=== PATIENT | male | born 1995 | race Caucasian/White ===

== ENCOUNTER 2018-08-17 19:16 | Observation (INO) | payer BC ==
[2018-08-17] MEDS ORDERED: NS 1,000 ML IV ONE ×2 (19:28→21:20)
--- NOTE | 2018-08-17 19:28 | EDPHY ---
H & P Stated Complaint: Chest pain after hiking, new to elevation, "heart murmur" Time Seen by Provider: 08/17/18 19:22 HPI/ROS: HPI: This is a 22-year-old male who presents with Chief Complaint: Chest pain after hiking, new to elevation, "heart murmur" Location: Chest Quality: Pain, dyspnea Duration: 3-4 hours prior to arrival Signs and Symptoms: no shortness of breath at rest, + shortness of breath on exertion, no cough, no chest pain, no palpitations, no lower extremity edema, no wheezing, no orthopnea, no paroxysmal nocturnal dyspnea, no fever, no injury/ trauma, no hemoptysis, no carpal pedal spasms, no fever Timing: Slowly improving Severity: Moderate Context: Patient presents with complaints of anterior generalized chest pain associated with shortness of breath and "racing heart" while hiking in the [facility] approximately 3 hr prior to arrival. He reports that he was hiking approximately 3.5 hr when he started to experience the symptoms. He only drank 1 bottle of water the entire day. He has a history of depression, anxiety and takes Paxil and clonazepam 0.5 mg twice a day. Patient drove yesterday from [facility] to [facility] in the car for approximately 8 hr. He is returning home tomorrow in the car. Nonsmoker. Denies drug use. No recent alcohol use. Patient reports that he lives a sedentary lifestyle and is not used to moderate strenuous exercise. He reports that his symptoms are slowly improving since arrival to the emergency room. NO recent illnesses. No Family cardiac history. Modifying Factors: None Comment: ROS: A comprehensive 10 system review of systems is otherwise negative aside from elements mentioned in the history of present illness. MEDICAL/SURGICAL/SOCIAL HISTORY: Medical history: Depression, anxiety. Surgical history: Denies Social history: Lives in [place]. Denies alcohol, tobacco, drug use. CONSTITUTIONAL: Moderately anxious young adult white male, awake and alert, no obvious distress HEENT: Atraumatic and normocephalic, PERRL, EOMI. Nares patent; no rhinorrhea; no nasal mucosal edema. Tympanic membranes clear. Oropharynx clear, no exudate and moist pink mucosa. Airway patent. No lymphadenopathy. No meningismus. Cardiovascular: Normal S1/S2, sinus tachycardia, regular rhythm, without murmur rub or gallop. PULMONARY/CHEST: Symmetrical and nontender. Clear to auscultation bilaterally. Good air movement. No accessory muscle usage. ABDOMEN: Soft, nondistended, nontender, no rebound, no guarding, no peritoneal signs, no masses or organomegaly. No CVAT. EXTREMITIES: 2/2 pulses, strength 5/5, no deformities, no clubbing, no cyanosis or edema. NEUROLOGICAL: no focal neuro deficits. GCS 15. Speaking in complete sentences. SKIN: Warm and dry, no erythema. no rash. Good capillary refill. Source: Patient Exam Limitations: No limitations - Personal History Current Tetanus Diphtheria and Acellular Pertussis (TDAP): Unsure - Medical/Surgical History Hx Asthma: No Hx Chronic Respiratory Disease: No Hx Diabetes: No Hx Cardiac Disease: No Hx Renal Disease: No Hx Cirrhosis: No Hx Alcoholism: No Hx HIV/AIDS: No Hx Splenectomy or Spleen Trauma: No Other PMH: Depression - Social History Smoking Status: Never smoked Constitutional: Initial Vital Signs Temperature (C) 36.8 C 08/17/18 19:19 Heart Rate 122 H 08/17/18 19:19 Respiratory Rate 17 08/17/18 19:19 Blood Pressure 138/91 H 08/17/18 19:19 O2 Sat (%) 99 08/17/18 19:19 O2 Delivery Mode Room Air O2 (L/minute) 2 Allergies/Adverse Reactions: No Known Allergies Allergy (Unverified 08/17/18 19:18) Home Medications: Medication Instructions Recorded CLONAZEPAM 08/17/18 Remeron 08/17/18 Medical Decision Making ED Course/Re-evaluation: Vital signs reviewed and show tachycardia. Placed on general office clerk. Due to component of altitude sickness, placed on oxygen 2 L nasal cannula EKG my read shows sinus tachycardia with a rate of 119 beats per minute with PAC but no acute ischemic changes, no arrhythmias, no heart blocks. IV access and laboratory studies ordered Given 2 L normal saline 1957: Notified by tech that POC troponin 0.06. 0: Serum troponin 0.074, D-dimer unremarkable, leukocytosis noted, no anemia , no platelet dysfunction, no electrolyte imbalances, no acute kidney injury 2199: Reassessed patient who reports no chest pain. Time for clonazepam dosing. clonazepam 0.5 mg given 2310: Repeat EKG stable. No acute ischemic changes, no arrhythmias, no RV strain. 2337: Repeat troponin 0.062 Chest x-ray ordered my read via PAC shows no opacity, no pneumothorax, no effusion, no widened mediastinum. ED decision to consult for admission for elevated troponin and leukocytosis with concern for myocarditis versus pericarditis. This all could be related to cardiac strain from exertion during hiking at increased elevation. Patient would benefit from echocardiogram and serial cardiac enzymes. Heart rate is now 96 beats per minute This patient was seen under the supervision of my secondary supervising physician. I evaluated care for this patient with attending. Differential Diagnosis: Chest pain including but not limited to myocardial ischemia, pulmonary embolus, chest wall pain, pleural inflammation and pulmonary infectious causes. - Data Points Laboratory Results: Laboratory Results 08/17/18 19:35 08/17/18 19:35 08/17/18 08/17/18 08/17/18 23:56 22:45 19:46 WBC RBC Hgb Hct MCV MCH MCHC RDW Plt Count MPV Neut % (Auto) Lymph % (Auto) [place] % (Auto) Eos % (Auto) Baso % (Auto) Nucleat RBC Rel Count Absolute Neuts (auto) Absolute Lymphs (auto) Absolute Monos (auto) Absolute Eos (auto) Absolute Basos (auto) Absolute Nucleated RBC Immature Gran % Seg Neutrophils % Band Neutrophils % Lymphocytes % Monocytes % Eosinophils % Basophils % Metamyelocytes % Myelocytes % Promyelocytes % Blast Cells % Immature Gran # Absolute Seg Neuts Absolute Band Neuts Absolute Lymphocytes Absolute Monocytes Absolute Eosinophils Absolute Basophils Absolute Metamyelocyte Absolute Myelocytes Absolute Promyelocytes Absolute Plasma Cells Nucleated RBCs RBC/WBC/PLT Morphology Absolute Blast Cells Plasma Cells % Platelet Estimate D-Dimer < 0.27 ug/mLFEU ug/mLFEU (0.00-0.50) Sodium Potassium Chloride Carbon Dioxide Anion Gap BUN Creatinine Estimated GFR Glucose Calcium POC Troponin I 0.06 ng/mL ng/mL (0.00-0.08) Troponin I 0.062 ng/mL H ng/mL (0.000-0.034) 08/17/18 08/17/18 08/17/18 19:35 19:35 19:35 WBC RBC Hgb Hct MCV MCH MCHC RDW Plt Count MPV Neut % (Auto) Lymph % (Auto) [place] % (Auto) Eos % (Auto) Baso % (Auto) Nucleat RBC Rel Count Absolute Neuts (auto) Absolute Lymphs (auto) Absolute Monos (auto) Absolute Eos (auto) Absolute Basos (auto) Absolute Nucleated RBC Immature Gran % Seg Neutrophils % Band Neutrophils % Lymphocytes % Monocytes % Eosinophils % Basophils % Metamyelocytes % Myelocytes % Promyelocytes % Blast Cells % Immature Gran # Absolute Seg Neuts Absolute Band Neuts Absolute Lymphocytes Absolute Monocytes Absolute Eosinophils Absolute Basophils Absolute Metamyelocyte Absolute Myelocytes Absolute Promyelocytes Absolute Plasma Cells Nucleated RBCs RBC/WBC/PLT Morphology Absolute Blast Cells Plasma Cells % Platelet Estimate D-Dimer < 0.27 ug/mLFEU ug/mLFEU (0.00-0.50) Sodium 137 mEq/L mEq/L (135-145) Potassium 3.7 mEq/L mEq/L (3.5-5.2) Chloride 101 mEq/L mEq/L (97-110) Carbon Dioxide 25 mEq/l mEq/l (22-31) Anion Gap 11 mEq/L mEq/L (6-14) BUN 12 mg/dL mg/dL (7-23) Creatinine 0.8 mg/dL mg/dL (0.7-1.3) Estimated GFR > 60 Glucose 92 mg/dL mg/dL (70-100) Calcium 9.5 mg/dL mg/dL (8.5-10.4) POC Troponin I Troponin I 0.074 ng/mL H ng/mL (0.000-0.034) 08/17/18 19:35 WBC 17.77 10^3/uL H 10^3/uL (3.80-9.50) RBC 6.04 10^6/uL 10^6/uL (4.40-6.38) Hgb 16.0 g/dL g/dL (13.7-17.5) Hct 48.1 % % (40.0-51.0) MCV 79.6 fL L fL (81.5-99.8) MCH 26.5 pg L pg (27.9-34.1) MCHC 33.3 g/dL g/dL (32.4-36.7) RDW 13.8 % % (11.5-15.2) Plt Count 324 10^3/uL 10^3/uL (150-400) MPV 10.2 fL fL (8.7-11.7) Neut % (Auto) Not Reported Lymph % (Auto) Not Reported [place] % (Auto) Not Reported Eos % (Auto) Not Reported Baso % (Auto) Not Reported Nucleat RBC Rel Count Not Reported Absolute Neuts (auto) Not Reported Absolute Lymphs (auto) Not Reported Absolute Monos (auto) Not Reported Absolute Eos (auto) Not Reported Absolute Basos (auto) Not Reported Absolute Nucleated RBC Not Reported Immature Gran % Not Reported Seg Neutrophils % 80.0 % % Band Neutrophils % 0.0 % % Lymphocytes % 14.0 % % Monocytes % 5.0 % % Eosinophils % 1.0 % % Basophils % 0.0 % % Metamyelocytes % 0.0 % % Myelocytes % 0.0 % % Promyelocytes % 0.0 % % Blast Cells % 0.0 % % Immature Gran # Not Reported Absolute Seg Neuts 14.22 10^3/uL H 10^3/uL (1.70-6.50) Absolute Band Neuts 0.00 10^3/uL 10^3/uL (0.00-0.70) Absolute Lymphocytes 2.49 10^3/uL 10^3/uL (1.00-3.00) Absolute Monocytes 0.89 10^3/uL H 10^3/uL (0.30-0.80) Absolute Eosinophils 0.18 10^3/uL 10^3/uL (0.03-0.40) Absolute Basophils 0.00 10^3/uL L 10^3/uL (0.02-0.10) Absolute Metamyelocyte 0.00 10^3/mL 10^3/mL (0.00-0.00) Absolute Myelocytes 0.00 10^3/mL 10^3/mL (0.00-0.00) Absolute Promyelocytes 0.00 10^3/uL 10^3/uL (0.00-0.00) Absolute Plasma Cells 0.00 10^3/uL 10^3/uL (0.00-0.00) Nucleated RBCs 0 /100 WBC /100 WBC (0-0) RBC/WBC/PLT Morphology NORMAL (NORMAL) Absolute Blast Cells 0.00 10^3/uL 10^3/uL (0.00-0.00) Plasma Cells % 0.0 % % Platelet Estimate ADEQUATE (ADEQ) D-Dimer Sodium Potassium Chloride Carbon Dioxide Anion Gap BUN Creatinine Estimated GFR Glucose Calcium POC Troponin I Troponin I Medications Given: Discontinued Medications Clonazepam (Klonopin) 0.5 mg PO EDNOW ONE Stop: 08/17/18 22:04 Last Admin: 08/17/18 22:39 Dose: 0.5 mg Sodium Chloride (Ns) 1,000 mls @ 0 mls/hr IV EDNOW ONE; Wide Open PRN Reason: Protocol Stop: 08/17/18 19:29 Last Admin: 08/17/18 19:38 Dose: 1,000 mls Sodium Chloride (Ns) 1,000 mls @ 0 mls/hr IV ONCE ONE; Wide Open PRN Reason: Protocol Stop: 08/17/18 21:21 Last Admin: 08/17/18 22:00 Dose: 1,000 mls Point of Care Test Results: Chemistry 08/17/18 19:46 POC Troponin I 0.06 ng/mL ng/mL (0.00-0.08) Departure - Departure Disposition: [facility] In[facility] Acute Clinical Impression: Elevated troponin, Chest pain on exertion Condition: Fair
[2018-08-17 19:53] LABS: PLATELET COUNT 324 10^3/uL (150-400)
--- NOTE | 2018-08-17 21:04 | CPEKG ---
Test Reason : OPEN Blood Pressure : / mmHG Vent. Rate : 119 BPM Atrial Rate : 120 BPM P-R Int : 155 ms QRS Dur : 102 ms QT Int : 327 ms P-R-T Axes : 052 065 025 degrees QTc Int : 461 ms Sinus tachycardia Atrial premature complex Confirmed by Armando Wilson ([id number]) on 08/17/2018 9:04:23 PM Referred By: Armando Wilson Confirmed By:Armando Wilson
[2018-08-17] MEDS ORDERED: clonazePAM 0.5 MG TAB PO ONE (22:03)
[2018-08-18] MEDS ORDERED: ACETAMINOPHEN 325 MG TAB PO PRN (00:01)
[2018-08-18] MEDS ORDERED: ONDANSETRON 4 MG/2 ML VIAL IVP PRN (00:01)
[2018-08-18] MEDS ORDERED: ONDANSETRON DISINTEGRATING 4 MG TAB PO PRN (00:01)
--- NOTE | 2018-08-18 00:46 | PDGENHP ---
History and Physical - Chief Complaint Chest pain - History of Present Illness 22 yo M w/ hx of anxiety and depression presents with chest pain. The patient is visiting from [place], [place]. He was hiking in [facility] today when he developed central chest pain. The chest pain lasted several hours so he came in to the ED for evaluation. He also noticed a mild cough during this period. In the ED his evaluation was notable for a troponin in the indeterminate range. He is chest pain free at the time of my evaluation. He denies personal cardiac history. He also denies family hx of early CAD or sudden cardiac . His grandfather did have CAD and his mother hypertension. He is being admitted for observation and echocardiogram. Case discussed with ED TRISTON Krishnan; records reviewed and summarized above. History Information - Allergies/Home Medication List Allergies/Adverse Reactions: No Known Allergies Allergy (Unverified 08/17/18 19:18) Home Medications: CLONAZEPAM 08/17/18 [Last Taken Unknown] Remeron 08/17/18 [Last Taken Unknown] I have personally reviewed and updated: family history, medical history - Past Medical History Additional medical history: Anxiety. Depression - Surgical History Additional surgical history: Eye surgery at age 3 - Family History Positive for: CAD, hypertension - Social History Smoking Status: Never smoked Review of Systems Review of Systems: ROS: 10pt was reviewed & negative except for what was stated in HPI & below Physical Exam Physical Exam: Temp Pulse Resp BP Pulse Ox 36.8 C 99 18 117/75 94 08/17/18 19:19 08/18/18 00:00 08/18/18 00:00 08/18/18 00:00 08/18/18 00:00 Constitutional: no apparent distress, not in pain Eyes: PERRL, EOMI Ears, Nose, Mouth, Throat: moist mucous membranes, no oral mucosal ulcers Cardiovascular: regular rate and rhythym, no murmur, rub, or gallop Respiratory: no respiratory distress, clear to auscultation Gastrointestinal: normoactive bowel sounds, soft, non-tender abdomen Skin: warm, normal color Musculoskeletal: full muscle strength, no muscle tenderness Neurologic: AAOx3, CN II-XII Intact Psychiatric: interacting appropriately, not anxious Lab Data & Imaging Review 08/17/18 19:35 08/17/18 19:35 WBC 17.77 10^3/uL (3.80-9.50) H 08/17/18 19:35 RBC 6.04 10^6/uL (4.40-6.38) 08/17/18 19:35 Hgb 16.0 g/dL (13.7-17.5) 08/17/18 19:35 Hct 48.1 % (40.0-51.0) 08/17/18 19:35 MCV 79.6 fL (81.5-99.8) L 08/17/18 19: MCH 26.5 pg (27.9-34.1) L 08/17/18 19: MCHC 33.3 g/dL (32.4-36.7) 08/17/18 19:35 RDW 13.8 % (11.5-15.2) 08/17/18 19:35 Plt Count 324 10^3/uL (150-400) 08/17/18 19:35 MPV 10.2 fL (8.7-11.7) 08/17/18 19:35 Neut % (Auto) Not Reported 08/17/18 19:35 Lymph % (Auto) Not Reported 08/17/18 19:35 [place]rell % (Auto) Not Reported 08/17/18 19:35 Eos % (Auto) Not Reported 08/17/18 19:35 Baso % (Auto) Not Reported 08/17/18 19:35 Nucleat RBC Rel Count Not Reported 08/17/18 19:35 Absolute Neuts (auto) Not Reported 08/17/18 19:35 Absolute Lymphs (auto) Not Reported 08/17/18 19:35 Absolute Monos (auto) Not Reported 08/17/18 19:35 Absolute Eos (auto) Not Reported 08/17/18 19:35 Absolute Basos (auto) Not Reported 08/17/18 19:35 Absolute Nucleated RBC Not Reported 08/17/18 19:35 Immature Gran % Not Reported 08/17/18 19:35 Seg Neutrophils % 80.0 % 08/17/18 19:35 Band Neutrophils % 0.0 % 08/17/18 19:35 Lymphocytes % 14.0 % 08/17/18 19:35 Monocytes % 5.0 % 08/17/18 19:35 Eosinophils % 1.0 % 08/17/18 19:35 Basophils % 0.0 % 08/17/18 19:35 Metamyelocytes % 0.0 % 08/17/18 19:35 Myelocytes % 0.0 % 08/17/18 19: Promyelocytes % 0.0 % 08/17/18 19: Blast Cells % 0.0 % 08/17/18 19: Immature Gran # Not Reported 08/17/18 19:35 Absolute Seg Neuts 14.22 10^3/uL (1.70-6.50) H 08/17/18 19: Absolute Band Neuts 0.00 10^3/uL (0.00-0.70) 08/17/18 19:35 Absolute Lymphocytes 2.49 10^3/uL (1.00-3.00) 08/17/18: Absolute Monocytes 0.89 10^3/uL (0.30-0.80) H 08/17/18: Absolute Eosinophils 0.18 10^3/uL (0.03-0.40) 08/17/18: Absolute Basophils 0.00 10^3/uL (0.02-0.10) L 08/17/18: Absolute Metamyelocyte 0.00 10^3/mL (0.00-0.00) 08/17/18: Absolute Myelocytes 0.00 10^3/mL (0.00-0.00) 08/17/18 19: Absolute Promyelocytes 0.00 10^3/uL (0.00-0.00) 08/17/18: Absolute Plasma Cells 0.00 10^3/uL (0.00-0.00) 08/17/18: Nucleated RBCs 0 /100 WBC (0-0) 08/17/18 19:35 RBC/WBC/PLT Morphology NORMAL (NORMAL) 08/17/18: Absolute Blast Cells 0.00 10^3/uL (0.00-0.00) 08/17/18: Plasma Cells % 0.0 % 08/17/18 19: Platelet Estimate ADEQUATE (ADEQ) 08/17/18 19:35 D-Dimer < 0.27 ug/mLFEU (0.00-0.50) 08/17/18 23:56 Sodium 137 mEq/L (135-145) 08/17/18 19:35 Potassium 3.7 mEq/L (3.5-5.2) 08/17/18 19:35 Chloride 101 mEq/L (97-110) 08/17/18 19:35 Carbon Dioxide 25 mEq/l (22-31) 08/17/18 19:35 Anion Gap 11 mEq/L (6-14) 08/17/18 19:35 BUN 12 mg/dL (7-23) 08/17/18 19:35 Creatinine 0.8 mg/dL (0.7-1.3) 08/17/18 19:35 Estimated GFR > 60 08/17/18 19:35 Glucose 92 mg/dL (70-100) 08/17/18 19:35 Calcium 9.5 mg/dL (8.5-10.4) 08/17/18 19:35 POC Troponin I 0.06 ng/mL (0.00-0.08) 08/17/18 19:46 Troponin I 0.062 ng/mL (0.000-0.034) H 08/17/18 22:45 Visualized and Interpreted EKG results: Yes EKG Interpretation: Positive for: normal sinsus rhythm Assessment & Plan Assessment: 22 yo M w/ anxiety and depression presents with chest pain. Plan: 1. Chest pain - Occurred today while hiking at altitude; troponin indeterminate in the ED and downtrending. He is now chest pain free. ECG (personally reviewed/ interpreted) without signs of ischemia. He denies family hx of early CAD or SCD. - Admit to PCU for observation - Monitor on telemetry - Will order TTE 2. Anxiety, depression - Continue home medications pending reconciliation Diet - Regular Code - Full Ppx - Low risk Dispo - Admit under observation status
[2018-08-18 04:42] LABS: PLATELET COUNT 265 10^3/uL (150-400)
[2018-08-18] MEDS: clonazePAM 0.5 MG TAB PO SCH ×2 (10:05→20:49)
[2018-08-18] MEDS: PARoxetine HCL 20 MG TAB PO SCH (10:05)
--- NOTE | 2018-08-18 10:40 | ECHO ---
[email or web address] [address] [address] Main: [phone] Echocardiography Examination Transthoracic Name: MATTY MCCOY MR#: [id number] Study Date: 08/18/2018 Study Time: 09:04 AM Date of : 1995 Age: 22 year(s) Height: 188 cm (74 in.) Weight: 81.65 kg (180 lb.) BSA: 2.08 m2 Gender: Male Examination: Echo Contrast: Image Quality: Adequate Rhythm: Heart Rate: BP: 106 mmHg/65 mmHg Indication: Chest Pain, Indeterminate troponin Procedure Staff Referring Physician: Airline Reservationist: Anyi Allen [facility] Reading Physician: Ed Edwards MD Requesting Provider: Indication: Chest Pain, Indeterminate troponin Measurements Chambers AV/MV Label Value Normal Value Label Value Normal Value IVSd, 2D 0.9 cm (0.6cm - 1.1cm) AV PGmax 6 mmHg LVDd, 2D 4.2 cm (4.2cm - 5.9cm) AV PGmean 3 mmHg LVDs, 2D 2.9 cm (2.1cm - 4cm) AV Vmax 1.19 m/s LVEF, 2D 58 % (54% - 74%) CECILIO D (continuity eq. 2.8 cm2 LVEF, BP 58 % (55% - 70%) VTI) LVOT PGmean 2 mmHg MV A Vmax 0.66 m/s LVOT Vmean 0.65 m/s MV DT 187 ms LVOTd 2.2 cm (1.9cm - 2.1cm) MV E' lateral 0.15 m/s LVPWd, 2D 1 cm (0.6cm - 1cm) MV E' mean 0.14 m/s RVDd, 2D 2.9 cm (1.9cm - 3.8cm) MV E' septal 0.13 m/s LA Volume, BP 42 ml (18ml - 58ml) MV E Vmax 0.89 m/s LADs, 2D 2.9 cm (3cm - 4cm) MV E/A 1.35 LAESV index, BP 20.2 ml/m2 MV E/E' lateral 6.1 RA Area 13.3 cm2 MV E/E' mean 6.36 Additional Vessels MV E/E' septal 6.8 (0.6 - 2.6) Label Value Normal Value MV PHT 0.05 s AoAsc 2.5 cm MV PHT 53 ms AoRoot, 2D 3.4 cm (1.4cm - 2.6cm) MVA PHT 4.2 cm2 IVC 1.3 cm (1.2cm - 2.3cm) TV/PV Label Value Normal Value Patient: MATTY MCCOY Study Date: 08/18/2018 Page 1 of 3 09:04 AM RA Pressure 5 mmHg RVSP 26 mmHg TR Pmax 21 mmHg TR Vmax 2.31 m/s PV PGmax 3 mmHg PV Vmax, Caliper 0.86 m/s (0.6m/s - 0.9m/s) Conclusions Left Ventricle: CONCLUSIONS:1)Normal LV size and systolic function with a LVEF of 58% and normal wall motions.2)Normal diastolic function noted.3)Trivial, physiological MR without MV prolapse.4)Mild TR with estimated normal PA pressures.5)No pericardial effusion noted. Findings Left Ventricle: Left ventricle is normal in size. CONCLUSIONS: 1)Normal LV size and systolic function with a LVEF of 58% and normal wall motions. 2)Normal diastolic function noted. 3)Trivial, physiological MR without MV prolapse. 4)Mild TR with estimated normal PA pressures. 5)No pericardial effusion noted. The ejection fraction, measured by Simpsons method, is 58 %. Left ventricle wall thickness is normal. There are no regional wall motion abnormalities. No LV hypertrophy. Right Ventricle: Normal size right ventricle. Right ventricular systolic function is normal. Left Atrium: The left atrium is normal in size. Mitral Valve: Mitral valve appears structurally normal. Trivial mitral regurgitation. No mitral valve stenosis. Aortic Valve: Aortic leaflets are structurally normal. No significant aortic valve regurgitation. There is no aortic stenosis. Tricuspid Valve: Tricuspid valve leaflets are structurally normal. Mild tricuspid regurgitation. No tricuspid valve stenosis. Right Ventricular systolic pressure is measured at 26 mmHg. Pulmonary artery pressure normal. Pulmonic Valve: Pulmonic leaflets are structurally normal. Trivial pulmonic valve regurgitation is present. Aorta: The aortic root size in 2D measures 3.4 cm. The ascending aorta measures 2.5 cm. Aorta Measurements AoRoot, 2D is 3.4 cm. IVC: The inferior vena cava is normal in size. Pericardium: No pericardial effusion. Exam Details Procedure Ordered: Echo Procedure Status: Routine study Image Quality: Adequate Facility Location: Cardiac Echo 1 Patient: MATTY MCCOY Study Date: 08/18/2018 Page 2 of 3 09:04 AM (No Signature Object) Patient: MATTY MCCOY Study Date: 08/18/2018 Page 3 of 3 09:04 AM [id number]
--- NOTE | 2018-08-18 12:37 | HOSPPROG ---
Hospitalist Progress Note Assessment/Plan: Patient is new to my care. Tells me he had treadmill stress 2 yrs ago inconclusive and did not follow up. No CP now. Gets very fatigued with stairs and walking up hills #Atypical chest pain -no WMA on echo, negative dimer. Sxs not c/w pericarditis -discussed with Dr. Rios. Mildly elevated trops concerning. Check cardiac CT in morning. Add BB this evening for test -check utox #Anxiety: home meds #Leukocytosis: min nonproductive cough yesterday, no infectious sxs, normal CXR -may be hemoconcentrated. Improved with IVFs #Diet: regular Disp: inpatient admission for rate-control, cardiac CT in AM (13:00-13:30) Direct clinical care spent: 30 min. Bedside evaluating pt, reviewing echo, and d /w Dr. Rios Subjective: no chest pain. Denies URI sxs Objective: Vital Signs Temp Pulse Resp BP Pulse Ox 36.8 C 100 13 100/68 96 08/18/18 07:20 08/18/18 11:25 08/18/18 11:25 08/18/18 11:25 08/18/18 11:25 Laboratory Results 08/18/18 03:38 08/18/18 03:38 - Time Spent With Patient Time Spent with Patient: greater than 35 minutes Time Spent with Patient: Greater than 35 minutes spent on this patients care, greater than 50% of time spent counseling, educating, and coordinating care regarding the above mentioned plan. - Physical Exam Constitutional: no apparent distress Eyes: PERRL Ears, Nose, Mouth, Throat: moist mucous membranes Cardiovascular: regular rate and rhythym, other (no reproducbile chest pain) Respiratory: no respiratory distress Gastrointestinal: normoactive bowel sounds Genitourinary: no bladder fullness Skin: warm Musculoskeletal: full muscle strength Neurologic: AAOx3 Psychiatric: interacting appropriately ICD10 Worksheet Patient Problems: Problems Problem Status Onset Chest pain on exertion Acute Elevated troponin Acute
[2018-08-18] MEDS ORDERED: NS 1,000 ML IV SCH (13:00)
--- NOTE | 2018-08-18 15:54 | ASMTCMCOM ---
CM Note CM Note Notes: Pt discussed in rounds and chart reviewed for discharge. Pt is a 22yr old adm with an elevated Troponin and chest pain. Pt has a hx of anxiety & depression, he is visiting from [place] and was hiking when he develop CP. Pt will return home, no needs ID. CM available for needs. PLAN: Home to [facility], independently. Date Signed: 08/18/2018 03:53 PM Electronically Signed By:Kasandra Schroeder
[2018-08-18] MEDS: METOPROLOL TARTRATE 50 MG TAB PO SCH (20:49)
[2018-08-19] MEDS: PARoxetine HCL 20 MG TAB PO SCH (08:10)
[2018-08-19] MEDS: clonazePAM 0.5 MG TAB PO SCH (08:10)
[2018-08-19] MEDS: METOPROLOL TARTRATE 50 MG TAB PO SCH (08:10)
--- NOTE | 2018-08-19 08:38 | HOSPPROG ---
Hospitalist Progress Note Assessment/Plan: Patient is new to my care. Tells me he had treadmill stress 2 yrs ago inconclusive and did not follow up. No CP now. Gets very fatigued with stairs and walking up hills #Atypical chest pain -no WMA on echo, negative dimer. Sxs not c/w pericarditis -Cardiac with normal coronaries, mildly reduced EF 49%. No e/o volume overload. Rec referral to Cardiology in [place] #Anxiety: home meds #Leukocytosis: min nonproductive cough yesterday, no infectious sxs, normal CXR -may be hemoconcentrated. Improved with IVFs #Diet: regular Disp: DC today Subjective: no chest pain Objective: Vital Signs Temp Pulse Resp BP Pulse Ox 36.6 C 81 16 116/78 96 08/19/18 08:00 08/19/18 08:00 08/19/18 08:00 08/19/18 08:00 08/19/18 08:00 Laboratory Results 08/18/18 03:38 08/18/18 03:38 08/18/18 08/19/18 08/20/18 05:59 05:59 05:59 Intake Total 2010 Balance 2009 - Time Spent With Patient Time Spent with Patient: greater than 35 minutes Time Spent with Patient: Greater than 35 minutes spent on this patients care, greater than 50% of time spent counseling, educating, and coordinating care regarding the above mentioned plan. - Physical Exam Constitutional: no apparent distress Ears, Nose, Mouth, Throat: moist mucous membranes Cardiovascular: regular rate and rhythym Respiratory: no respiratory distress Gastrointestinal: normoactive bowel sounds Genitourinary: no bladder fullness Skin: warm Musculoskeletal: full muscle strength Neurologic: AAOx3 Psychiatric: flat affect ICD10 Worksheet Patient Problems: Problems Problem Status Onset Chest pain on exertion Acute Elevated troponin Acute
[2018-08-19] MEDS ORDERED: IOPAMIDOL (ISOVUE-370) 150 ML BTL IV ONE (09:02)
[2018-08-19] MEDS ORDERED: METOPROLOL TARTRATE 5 MG/5 ML INJ IVP ONE (10:00)
[2018-08-19 11:56] VITALS: BP 106/69
--- NOTE | 2018-08-20 01:37 | GDS ---
[f rep st] DISCHARGE SUMMARY DISCHARGE DIAGNOSES: 1. Atypical chest pain. 2. Indeterminate troponin. 3. Anxiety. 4. Leukocytosis. HISTORY OF PRESENT ILLNESS: A 22-year-old male with anxiety/depression [place] [facility] [facility] with chest pain. He was hiking in [facility] and de veloped substernal chest pressure lasting several hours. It did not radiate. He had no associated n ausea, vomiting, or diaphoresis. He did notice mild cough during this period but nonproductive. No fevers. His maternal grandfather had an [place] in his 40s. Mother with hypertension. HOSPITAL COURSE BY PROBLEM: 1. Atypical chest pain with indeterminate troponin: Troponin peaked at 0.[address] but normalized. [address] CT demonstrated normal coronary arterial system without calcification or plaque. He did have a lo w-normal EF of 49% with no wall motion abnormalities. He is currently chest pain free. Recommend wh en he returns to [place] to establish care with Cardiology to follow. No evidence of volume overloa d. Counseled on diet and exercise. 2. Anxiety/depression: Resume home medications. DISPOSITION: Patient is stable for discharge home. FOLLOWUP: 1. PCP. 2. Referral for Cardiology. /[id number]/MODL
== END 2018-08-19 15:25 | disposition home or self-care (01) ==
LOC: F2W 08-18 00:50
PROVIDERS: ADMIT Student in an Organized Health Care Education/Training Program; ATTEND Student in an Organized Health Care Education/Training Program
DX: R07.89 Other chest pain (principal); R79.89 Other specified abnormal findings of blood chemistry; F41.8 Other specified anxiety disorders; F32.9 Major depressive disorder, single episode, unspecified; D72.829 Elevated white blood cell count, unspecified; E86.9 Volume depletion, unspecified; Z82.49 Family history of ischemic heart disease and other diseases of the circulatory system
CPT/HCPCS: 71046; 75574; 93005; 93306; 96361; 96374; 99285; G0378; 80305; 84484-ER; Q9967